=== PATIENT | male | born 1960 | race Caucasian/White ===

== ENCOUNTER 2021-01-15 21:44 | Emergency (ER) | payer SELFPAY ==
[~2021-01-15] VITALS: Ht 162.6 cm; Wt 55.0 kg
[2021-01-15] MEDS ORDERED: OLANZAPINE 10 MG/VIAL IM ONE (22:45)
[2021-01-16 00:14] LABS: BASOPHILS % 0.5 % (0.0-2.0); EOSINOPHILS % 0.8 % (0.0-5.0); HEMATOCRIT. 36.4 % (42.0-52.0); HEMOGLOBIN. 12.6 g/dL (14.0-18.0); LYMPHOCYTES % 26.9 % (20.0-50.0); MEAN CORPUSCULAR VOLUME 86.4 fL (80.0-94.0); MEAN PLATELET VOLUME 9.2 fl (7.4-10.4); MONOCYTES % 8.2 % (2.0-8.0); NEUTROPHILS % 63.6 % (40.0-76.0); PLATELET 235 x1000/uL (130-400); RED BLOOD CELL COUNT 4.21 mill/uL (4.7-6.1); RED CELL DISTRIBUTION WIDTH 13.1 % (11.6-14.6)
[2021-01-16 00:21] LABS: CHLORIDE 107 mEq/L (98-107)
[2021-01-16 00:26] LABS: ETHANOL BLOOD < 10 mg/dL
[2021-01-16 04:23] LABS: *AMPHETAMINES SCREEN URINE NEGATIVE (NEGATIVE); *BARBITURATES SCREEN URINE NEGATIVE (NEGATIVE); *BENZODIAZEPINES SCREEN URINE NEGATIVE (NEGATIVE); *COCAINE SCREEN URINE NEGATIVE (NEGATIVE); CANNABINOID URINE SCREEN NEGATIVE (NEGATIVE); OPIATES URINE SCREEN NEGATIVE (NEGATIVE); PHENCYCLIDINE URINE SCREEN NEGATIVE (NEGATIVE)
[2021-01-16 04:24] LABS: METHADONE URINE SCREEN NEGATIVE (NEGATIVE)
[2021-01-16 07:12] LABS: CLARITY URINE CLEAR (CLEAR); COLOR URINE YELLOW (YELLOW); KETONES URINE 2+ (NEGATIVE); LEUKOCYTE ESTERASE URINE NEGATIVE (NEGATIVE); NITRITE URINE NEGATIVE (NEGATIVE); OCCULT BLOOD URINE NEGATIVE (NEGATIVE); PROTEIN URINE NEGATIVE (NEGATIVE); SPECIFIC GRAVITY URINE 1.044 (1.005-1.030); UROBILINOGEN URINE 0.2 E.U./dL (0.2-1.0)
[2021-01-16] MEDS ORDERED: OLANZAPINE 10 MG/VIAL IM ONE (08:00)
[2021-01-16] MEDS ORDERED: LORAZEPAM 2MG/ML CPJ IM ONE (08:00)
[2021-01-16] MEDS: METFORMIN HCL 500MG TABLET PO SCH ×2 (09:00→17:00)
[2021-01-16] MEDS: RISPERIDONE 1MG TABLET PO SCH ×2 (09:00→21:32)
[2021-01-16] MEDS ORDERED: SODIUM CHLORIDE 0.9% 1,000 ML IV ONE (13:45)
[2021-01-17] MEDS ORDERED: INSULIN REGULAR (HUMULIN R) 300UNITS/3ML VIAL SUBCUT ONE (08:30)
[2021-01-17] MEDS: RISPERIDONE 1MG TABLET PO SCH (08:43)
[2021-01-17] MEDS: METFORMIN HCL 500MG TABLET PO SCH ×2 (08:43→19:19)
[2021-01-17] MEDS ORDERED: LORAZEPAM 2MG/ML CPJ IM ONE (09:45)
[2021-01-17] MEDS ORDERED: OLANZAPINE 10 MG/VIAL IM ONE (09:45)
[2021-01-18] MEDS: RISPERIDONE 1MG TABLET PO SCH ×3 (04:06→21:26)
[2021-01-18] MEDS ORDERED: INS NPH/REG HM 70-30 100 UNITS/ML 10ML VIAL (HUMULIN 70-30) SUBCUT ONE (08:45)
[2021-01-18] MEDS: METFORMIN HCL 500MG TABLET PO SCH ×2 (12:18→20:01)
[2021-01-19] MEDS ORDERED: INSULIN REGULAR (HUMULIN R) 300UNITS/3ML VIAL SUBCUT ONE ×2 (09:15→11:00)
[2021-01-19] MEDS ORDERED: INSULIN REGULAR (HUMULIN R) 300UNITS/3ML VIAL SUBCUT NR (09:30)
[2021-01-19] MEDS: RISPERIDONE 1MG TABLET PO SCH (09:49)
[2021-01-19] MEDS: METFORMIN HCL 500MG TABLET PO SCH ×2 (09:50→17:37)
[2021-01-19] MEDS ORDERED: OLANZAPINE 10 MG/VIAL IM ONE (20:30)
[2021-01-19] MEDS ORDERED: OLANZAPINE 10 MG/VIAL IM NR (20:45)
[2021-01-20] MEDS: METFORMIN HCL 500MG TABLET PO SCH ×2 (08:34→18:20)
[2021-01-20] MEDS: RISPERIDONE 1MG TABLET PO SCH ×3 (08:34→20:37)
[2021-01-20] MEDS ORDERED: INSULIN REGULAR (HUMULIN R) 300UNITS/3ML VIAL SUBCUT ONE ×2 (08:45→12:00)
[2021-01-21] MEDS: RISPERIDONE 1MG TABLET PO SCH (08:37)
[2021-01-21] MEDS: METFORMIN HCL 500MG TABLET PO SCH (08:37)
[2021-01-21] MEDS ORDERED: INSULIN REGULAR (HUMULIN R) 300UNITS/3ML VIAL SUBCUT ONE (09:00)
[2021-01-21 09:25] VITALS: BP 139/72
== END 2021-01-21 09:26 | disposition home or self-care (01) ==
LOC: ER 21:44 → EDBD 21:44 → ER 01-21 09:26
DX: F23 Brief psychotic disorder (principal); R73.9 Hyperglycemia, unspecified; Z20.822 Contact with and (suspected) exposure to COVID-19
CPT/HCPCS: 36415; 80053; 80307; 80320; 80329; 82962; 83036; 85025; 87426; 96360; 96361; 96372; 99285; J1815; J2060; J3490; J7030; G0480